=== PATIENT | female | born 1985 | race Caucasian/White ===

== ENCOUNTER 2016-11-08 06:54 | Emergency (ER) | payer SELFPAY ==
[~2016-11-08] VITALS: Ht 170.2 cm; Wt 74.9 kg
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
[2016-11-08 09:43] LABS: CREATININE 0.8 mg/dL (0.6-1.0); GFR 84.8; POTASSIUM 3.1 mmol/L (3.5-5.1)
[2016-11-08 09:45] LABS: BARBITURATES NEG (NEG); BENZODIAZEPINES NEG (NEG); CANNABINOIDS NEG (NEG); COCAINE POS (NEG); METHADONE NEG (NEG); OPIATES NEG (NEG); PHENCYCLIDINE NEG (NEG)
[2016-11-08 09:47] LABS: BASO % 0 % (0-3); EOS % 0 % (0-3); HEMATOCRIT 43.9 % (36.0-47.0); HEMOGLOBIN 15.1 g/dL (12.0-15.5); LYMPH # 1.9 x10^3/uL (1.0-4.8); LYMPH % 19 % (24-48); MEAN CORPUSCULAR HEMOGLOBIN 30 pg (25-35); MEAN CORPUSCULAR HGB CONC 34 g/dL (31-37); MEAN CORPUSCULAR VOLUME 86 fL (79-100); MONO % 8 % (0-9); NEUT % 73 % (31-73); PLATELET COUNT 302 x10^3/uL (140-400); RED BLOOD COUNT 5.09 x10^6/uL (3.50-5.40); RED CELL DISTRIBUTION WIDTH 13.7 % (11.5-14.5); WHITE BLOOD COUNT 10.3 x10^3/uL (4.0-11.0)
[2016-11-08 09:49] LABS: ALBUMIN 4.2 g/dL (3.4-5.0); ALBUMIN/GLOBULIN RATIO 1.1 (1.0-1.7); TOTAL PROTEIN 7.9 g/dL (6.4-8.2)
[2016-11-08] MEDS ORDERED: LORazepam 1 MG TABLET PO ONE (10:30)
[2016-11-08 11:02] VITALS: BP 126/76
[2016-11-08] MEDS ORDERED: LORA0.5T96 PO (11:03)
== END 2016-11-08 11:20 | disposition home or self-care (01) ==
LOC: ER 06:54
DX: F19.10 Other psychoactive substance abuse, uncomplicated (principal); F41.9 Anxiety disorder, unspecified
CPT/HCPCS: 36415; 80053; 80307; 85025; 99284; G0479

== ENCOUNTER 2016-12-06 19:14 | Emergency (ER) | payer SELFPAY ==
[~2016-12-06 19:14] MED LIST: LORA0.5T96 PO
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
[2016-12-06 19:56] LABS: BASO # 0.2 x10^3/uL (0.0-0.2); BASO % 1 % (0-3); EOS % 1 % (0-3); HEMATOCRIT 40.5 % (36.0-47.0); HEMOGLOBIN 13.6 g/dL (12.0-15.5); LYMPH # 3.4 x10^3/uL (1.0-4.8); LYMPH % 24 % (24-48); MEAN CORPUSCULAR HEMOGLOBIN 29 pg (25-35); MEAN CORPUSCULAR HGB CONC 34 g/dL (31-37); MEAN CORPUSCULAR VOLUME 87 fL (79-100); MONO % 8 % (0-9); NEUT % 66 % (31-73); PLATELET COUNT 259 x10^3/uL (140-400); RED BLOOD COUNT 4.66 x10^6/uL (3.50-5.40); RED CELL DISTRIBUTION WIDTH 13.8 % (11.5-14.5)
[2016-12-06 20:05] LABS: CALCIUM 8.7 mg/dL (8.5-10.1); CREATININE 0.7 mg/dL (0.6-1.0); GFR 98.9; POTASSIUM 3.1 mmol/L (3.5-5.1)
[2016-12-06 20:06] LABS: NEG OBC SER NEG; POS OBC SER POS
[2016-12-06 20:11] LABS: ALBUMIN 4.3 g/dL (3.4-5.0); DIRECT BILIRUBIN 0.1 mg/dL (0.0-0.2); TOTAL BILIRUBIN 0.4 mg/dL (0.2-1.0); TOTAL PROTEIN 7.3 g/dL (6.4-8.2)
[2016-12-06 20:13] LABS: INR 1.1 (0.8-1.1); PROTHROMBIN TIME PATIENT 13.6 SEC (11.7-14.0)
[2016-12-06 20:19] LABS: CKMB MASS 11.5 ng/mL (0.0-3.6)
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
[2016-12-06] MEDS ORDERED: POTASSIUM CHLORIDE 20 MEQ TABLET.ER. PO ONE ×2 (21:04→21:15)
[2016-12-06 21:15] VITALS: BP 120/70
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
== END 2016-12-06 21:54 | disposition home or self-care (01) ==
LOC: ER 19:14
DX: S80.12XA Contusion of left lower leg, initial encounter (principal); S70.11XA Contusion of right thigh, initial encounter; S70.12XA Contusion of left thigh, initial encounter; M54.2 Cervicalgia; R07.89 Other chest pain; E87.6 Hypokalemia; R79.89 Other specified abnormal findings of blood chemistry; V86.59XA Driver of other special all-terrain or other off-road motor vehicle injured in nontraffic accident, initial encounter; Y93.I9 Activity, other involving external motion; Y92.410 Unspecified street and highway as the place of occurrence of the external cause; Y99.8 Other external cause status
CPT/HCPCS: 36415; 70450; 71020; 72125; 72170; 73590; 80048; 80076; 82553; 83605; 83690; 84703; 85025; 85610; 99285-25

== ENCOUNTER 2018-07-27 21:25 | Emergency (ER) | payer SELFPAY ==
[~2018-07-27] VITALS: Ht 172.7 cm; Wt 74.8 kg
[2018-07-27 21:42] LABS: BILIRUBIN,URINE NEGATIVE (NEG); CLARITY,URINE CLOUDY; COLOR,URINE YELLOW; NITRITE,URINE NEGATIVE (NEG); PROTEIN,URINE 100 mg/dL (NEG-TRACE); UROBILINOGEN,URINE 0.2 mg/dL (0.2 mg/dL)
[2018-07-27 21:55] VITALS: BP 125/76
[2018-07-27 21:56] LABS: BACTERIA,URINE MODERATE /HPF (0-FEW); SQUAMOUS EPITHELIAL CELL,UR FEW /LPF; WBC,URINE >40 /HPF (0-4)
[2018-07-27] MEDS ORDERED: CEPH500C PO (22:36)
--- NOTE | 2018-07-27 22:38 | PHYS DOC ---
Past Medical History Past Medical History: No Pertinent History, Other Additional Past Medical Histor: ETOH and Drug abuse (LATISHA BENNETT APRN) Past Surgical History: Other Additional Past Surgical Histo: , "cervical surgeries" (LATISHA BENNETT APRN) Additional Information: 1 ppd Alcohol Use: Heavy Additional Information: 1 pint wiskey/day Drug Use: Cocaine, Methamphetamine, Phencyclidine (LATISHA BENNETT APRN) Adult General Chief Complaint Chief Complaint: PAIN ON URINATION [facility] HPI Patient is a 32 year old female who presents with [4 day complaints of urinary frequency, burning with urination. Patient reports she has never had a UTI like this before, usually she is able to treat it with cranberry pills and cranberry juice. Patient denies concerns or STI. Denies any current vaginal bleeding, vaginal hemorrhage, vaginal itching. Patient does report she has been feeling more anxious recently, has a history of alcohol abuse and drug abuse, states she is going to go to rehabilitation on Monday, has it scheduled to go through treatment there. Denies suicidal thoughts, denies suicidal ideation, denies thoughts of self-harm. Does report she drinks probably half pint of EtOH each day, does occasionally use methamphetamine, last used 3 days ago.] (LATISHA BENNETT APRN) Review of Systems Review of Systems Constitutional: Denies fever or chills [] Eyes: Denies change in visual acuity, redness, or eye pain [] HENT: Denies nasal congestion or sore throat [] Respiratory: Denies cough or shortness of breath [] Cardiovascular: No additional information not addressed in HPI [] GI: Denies abdominal pain, nausea, vomiting, bloody stools or diarrhea [] : Denies hematuria, does complain of increased urinary frequency, burning with urination.[] Musculoskeletal: Denies back pain or joint pain [] Integument: Denies rash or skin lesions [] Neurologic: Denies headache, focal weakness or sensory changes [] Endocrine: Denies polyuria or polydipsia [] All other systems were reviewed and found to be within normal limits, except as documented in this note. (LATISHA BENNETT APRN) Current Medications Current Medications Current Medications Medications (Trade) Dose Ordered Sig/Shaheen Start Time Stop Time Status Last Admin Dose Admin Cephalexin HCl (Keflex) 500 mg ONCE ONCE 07/27/18 23:00 5/31/19 23:01 DC 07/27/18 22:53 500 MG Phenazopyridine HCl (Pyridium) 200 mg 1X ONCE 07/27/18 23:00 07/27/18 23:01 DC 07/27/18 22:53 200 MG (SHAYY STROUD DO) Allergies Allergies Allergies Coded Allergies Type Severity Reaction Last Updated Verified No Known Drug Allergies 09/12/14 No (SHAYY STROUD DO) Physical Exam Physical Exam Constitutional: Well developed, well nourished, no acute distress, non-toxic appearance. Calm, conversational, becomes tearful when discussing her alcohol use and drug abuse. [] HENT: Normocephalic, atraumatic, bilateral external ears normal, oropharynx moist, no oral exudates, nose normal. [] Eyes: PERRLA, EOMI, conjunctiva normal, no discharge. [] Neck: Normal range of motion, no tenderness, supple, no stridor. [] Cardiovascular:Heart rate regular rhythm, no murmur [] Lungs & Thorax: Bilateral breath sounds clear to auscultation [] Abdomen: Bowel sounds normal, soft, no tenderness, no masses, no pulsatile masses. [] Skin: Warm, dry, no erythema, no rash. [] Back: No tenderness, no CVA tenderness. [] Extremities: No tenderness, no cyanosis, no clubbing, ROM intact, no edema. [] Neurologic: Alert and oriented X 3, normal motor function, normal sensory function, no focal deficits noted. [] Psychologic: Affect normal, judgement normal, mood normal. [] (LATISHA BENNETT APRN) Current Patient Data Vital Signs Vital Signs Date Time Temp Pulse Resp B/P (MAP) Pulse Ox O2 Delivery O2 Flow Rate FiO2 07/27/18 21:55 97.9 109 20 125/76 (92) 98 Room Air 97.9 (SHAYY STROUD DO) Lab Values Laboratory Tests Test 07/27/18 21:25 07/27/18 21:32 Urine Collection Type Void Urine Color Yellow Urine Clarity Cloudy Urine pH 7.0 Urine Specific [place] 1.020 Urine Protein 100 mg/dL (NEG-TRACE) Urine Glucose (UA) Negative mg/dL (NEG) Urine Ketones (Stick) Negative mg/dL (NEG) Urine Blood Moderate (NEG) Urine Nitrite Negative (NEG) Urine Bilirubin Negative (NEG) Urine Urobilinogen Dipstick 0.2 mg/dL (0.2 mg/dL) Urine Leukocyte Esterase Large (NEG) Urine RBC 11-20 /HPF (0-2) Urine WBC >40 /HPF (0-4) Urine Squamous Epithelial Cells Few /LPF Urine Bacteria Moderate /HPF (0-FEW) POC Urine HCG, Qualitative Hcg negative (Negative) (SHAYY STROUD DO) EKG EKG [] (LATISHA BENNETT APRN) Radiology/Procedures Radiology/Procedures [] (LATISHA BENNETT APRN) Course & Med Decision Making Course & Med Decision Making Pertinent Labs and Imaging studies reviewed. (See chart for details) [] (LATISHA BENNETT APRN) Dragon Disclaimer Dragon Disclaimer This electronic medical record was generated, in whole or in part, using a voice recognition dictation system. (LATISHA BENNETT APRN) Departure Departure Impression: Primary Impression: Urinary tract infection Additional Impression: Anxiety Disposition: HOME, SELF-CARE Condition: GOOD Referrals: NO PCP (PCP) Patient Instructions: Urinary Tract Infection, [id number] Additional Instructions: As we discussed, make sure you take the antibiotic until it is gone, the entire course. Keep your plan for your treatment starting on Monday as discussed. Scripts Cephalexin (CEPHALEXIN) 500 Mg Capsule 1 CAP PO BID, #20 CAP Prov: LATISHA BENNETT APRN 07/27/18 Attending Signature Attending Signature I have reviewed the PA/OFFICE CLERK ASSISTANT's note and plan of care. I was available for consultation as needed during the patient's visit in the emergency department. I agree with the clinical impression, plan, and disposition. (SHAYY STROUD DO) Problem Qualifiers Primary Impression: Urinary tract infection Urinary tract infection type: acute cystitis Hematuria presence: with hematuria Qualified Codes: N30.01 - Acute cystitis with hematuria LATISHA BENNETT APRN July 27, 2018 22:38 SHAYY STROUD DO Jul 28, 2018 04:05
[2018-07-27] MEDS ORDERED: CEPHALEXIN 250 MG CAPSULE. PO ONE (23:00)
[2018-07-27] MEDS ORDERED: PHENAZOPYRIDINE 200 MG TABLET. PO ONE (23:00)
== END 2018-07-27 22:58 | disposition home or self-care (01) ==
LOC: ER 21:25
DX: N30.01 Acute cystitis with hematuria (principal); F41.9 Anxiety disorder, unspecified; F17.200 Nicotine dependence, unspecified, uncomplicated; F10.20 Alcohol dependence, uncomplicated; Y90.9 Presence of alcohol in blood, level not specified
CPT/HCPCS: 81001; 81025; 87086; 87186; 99284

== ENCOUNTER 2018-12-04 23:53 | Emergency (ER) | payer SELFPAY ==
[~2018-12-04 23:53] MED LIST changes: +CEPH500C PO
== END 2018-12-05 00:35 | disposition left against medical advice (07) ==
LOC: ER 23:53
DX: F19.10 Other psychoactive substance abuse, uncomplicated (principal); Z53.21 Procedure and treatment not carried out due to patient leaving prior to being seen by health care provider

== ENCOUNTER 2018-12-05 01:48 | Emergency (ER) | payer SELFPAY ==
[~2018-12-05] VITALS: Ht 162.6 cm; Wt 63.5 kg
[2018-12-05 01:50] VITALS: BP 130/79
--- NOTE | 2018-12-05 02:21 | PHYS DOC ---
Past Medical History Past Medical History: Alcoholism, Other Additional Past Medical Histor: Substance Abuse Past Surgical History: Other Additional Past Surgical Histo: , "cervical surgeries" Alcohol Use: Heavy Drug Use: Cocaine, Methamphetamine, Phencyclidine Adult General Chief Complaint Chief Complaint: SORE THROAT HPI HPI 33-year-old female with known substance abuse presents with a sore throat. She denies any fever. She states anytime she tries to drink something or eat something it sore when she swallows area she denies any rash. She does admit to using methamphetamines recently.[] Review of Systems Review of Systems Constitutional: Denies fever or chills [] Eyes: Denies change in visual acuity, redness, or eye pain [] HENT: Reports sore throat[] Respiratory: Denies cough or shortness of breath [] Cardiovascular: No additional information not addressed in HPI [] GI: Denies abdominal pain, nausea, vomiting, bloody stools or diarrhea [] : Denies dysuria or hematuria [] Musculoskeletal: Denies back pain or joint pain [] Integument: Denies rash or skin lesions [] Neurologic: Denies headache, focal weakness or sensory changes [] Endocrine: Denies polyuria or polydipsia [] All other systems were reviewed and found to be within normal limits, except as documented in this note. Allergies Allergies Allergies Coded Allergies Type Severity Reaction Last Updated Verified No Known Drug Allergies 09/12/14 No Physical Exam Physical Exam Constitutional: Well developed, well nourished, no acute distress, non-toxic appearance. [] HENT: Posterior pharynx is slightly erythematous but no exudate[] Eyes: PERRLA, EOMI, conjunctiva normal, no discharge. [] Neck: Normal range of motion, no tenderness, supple, no stridor. [] Cardiovascular:Heart rate regular rhythm, no murmur [] Lungs & Thorax: Bilateral breath sounds clear to auscultation [] Abdomen: Bowel sounds normal, soft, no tenderness, no masses, no pulsatile mass es. [] Skin: Warm, dry, no erythema, no rash. [] Back: No tenderness, no CVA tenderness. [] Extremities: No tenderness, no cyanosis, no clubbing, ROM intact, no edema. [] Neurologic: Alert and oriented X 3, normal motor function, normal sensory function, no focal deficits noted. [] Psychologic: Affect normal, judgement normal, mood normal. [] Current Patient Data Vital Signs Vital Signs Date Time Temp Pulse Resp B/P (MAP) Pulse Ox O2 Delivery O2 Flow Rate FiO2 12/05/18 01:50 98.4 93 17 130/79 (96) 99 Room Air 98.4 EKG EKG [] Radiology/Procedures Radiology/Procedures [] Course & Med Decision Making Course & Med Decision Making Pertinent Labs and Imaging studies reviewed. (See chart for details) [Medical screening exam was performed there was no emergency keyes noted. Patient decided to leave prior to final disposition] Dragon Disclaimer Dragon Disclaimer This electronic medical record was generated, in whole or in part, using a voice recognition dictation system. Departure Departure Impression: Primary Impression: Sore throat Additional Impression: Anxiety about health Disposition: 01 HOME, SELF-CARE Condition: STABLE Referrals: NO PCP (PCP) Problem Qualifiers RYAN ORTIZ DO Dec 05, 2018 02:21
== END 2018-12-05 02:40 | disposition home or self-care (01) ==
LOC: ER 01:48
DX: J02.9 Acute pharyngitis, unspecified (principal); F41.9 Anxiety disorder, unspecified; F10.20 Alcohol dependence, uncomplicated; Y90.9 Presence of alcohol in blood, level not specified; F15.10 Other stimulant abuse, uncomplicated; F16.10 Hallucinogen abuse, uncomplicated; F14.10 Cocaine abuse, uncomplicated
CPT/HCPCS: 99281

== ENCOUNTER 2021-07-27 02:25 | Inpatient (IN) | payer OTHER ==
[~2021-07-27] VITALS: Ht 163.8 cm; Wt 90.1 kg
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
[2021-07-27 02:56] LABS: BACTERIA,URINE FEW /HPF (0-FEW); RBC,URINE TNTC /HPF (0-2); WBC,URINE 20-40 /HPF (0-4)
[2021-07-27 02:57] LABS: TRICHOMONAS,URINE PRESENT
[2021-07-27] MEDS ORDERED: LIDOCAINE 1% PF 30 ML VIAL. INJ PRN (03:00)
[2021-07-27] MEDS ORDERED: IBUPROFEN 400 MG TABLET. PO PRN (03:00)
[2021-07-27] MEDS ORDERED: 0.9 % SODIUM CHLORIDE 10 ML DISP.SYRIN. IV PRN ×2 (03:00→05:45)
[2021-07-27] MEDS ORDERED: IV RINGERS,LACTATED 1000ML 1,000 ML IV PRN (03:00)
[2021-07-27] MEDS ORDERED: OXYTOCIN 30 UNIT/500 ML PREMIX 500 ML IV PRN ×2 (03:00→05:45)
[2021-07-27] MEDS ORDERED: TERBUTALINE 1 MG/ML VIAL. SQ PRN (03:00)
[2021-07-27] MEDS ORDERED: fentaNYL PF VIAL 100 MCG/2 ML VIAL IVP PRN (03:00)
[2021-07-27] MEDS ORDERED: BUTORPHANOL 2 MG/ML VIAL. IVP PRN (03:00)
[2021-07-27 03:04] LABS: AMPHETAMINE/METHAMPHETAMINE POS (NEG); BARBITURATES NEG (NEG); BENZODIAZEPINES NEG (NEG); CANNABINOIDS NEG (NEG); COCAINE NEG (NEG); METHADONE NEG (NEG); OPIATES NEG (NEG); PHENCYCLIDINE NEG (NEG)
[2021-07-27 03:25] LABS: BASO # 0.1 x10^3/uL (0.0-0.2); BASO % 0 % (0-3); EOS # 0.1 x10^3/uL (0.0-0.7); EOS % 0 % (0-3); HEMATOCRIT 37.8 % (36.0-47.0); HEMOGLOBIN 12.5 g/dL (12.0-15.5); LYMPH # 2.6 x10^3/uL (1.0-4.8); LYMPH % 12 % (24-48); MEAN CORPUSCULAR HEMOGLOBIN 28 pg (25-35); MEAN CORPUSCULAR HGB CONC 33 g/dL (31-37); MEAN CORPUSCULAR VOLUME 84 fL (79-100); MONO # 1.3 x10^3/uL (0.0-1.1); MONO % 6 % (0-9); NEUT # 17.7 x10^3/uL (1.8-7.7); NEUT % 81 % (31-73); PLATELET COUNT 244 x10^3/uL (140-400); RED BLOOD COUNT 4.53 x10^6/uL (3.50-5.40); RED CELL DISTRIBUTION WIDTH 14.9 % (11.5-14.5); WHITE BLOOD COUNT 21.7 x10^3/uL (4.0-11.0)
[2021-07-27] MEDS: IV RINGERS,LACTATED 1000ML 1,000 ML IV PRN ×2 (03:35→04:13)
[2021-07-27] MEDS ORDERED: PENICILLIN G K 5,000,000 UNIT in IV DEXTROSE 5% 100ML 100 ML IV ONE (04:00)
[2021-07-27 04:12] LABS: % BANDS 1 % (0-9); % EOS 1 % (0-5); % LYMPHS 20 % (24-48); % MONOS 4 % (0-10); % SEGS 74 % (35-66); PLT ESTIMATE ADEQUATE (ADEQUATE)
[2021-07-27] MEDS ORDERED: MAGNESIUM HYDROXIDE 2,400 MG/30 ML ORAL.SUSP. PO PRN (05:45)
[2021-07-27] MEDS ORDERED: ZOLPIDEM 5 MG TABLET. PO PRN (05:45)
[2021-07-27] MEDS ORDERED: SIMETHICONE 80 MG TAB.CHEW PO PRN (05:45)
[2021-07-27] MEDS ORDERED: MAG HYDROX/ALUMINUM HYD/SIMETH 30 ML ORAL.SUSP PO PRN (05:45)
[2021-07-27] MEDS ORDERED: BENZOCAINE 20% TOPICAL AEROSOL SPRAY 57GM CAN. TP PRN (05:45)
[2021-07-27] MEDS ORDERED: TDaP (BOOSTRIX) per PROTOCOL. MC PRN (05:45)
[2021-07-27] MEDS ORDERED: MMR per PROTOCOL. MC PRN (05:45)
[2021-07-27] MEDS ORDERED: PHENYLEPH/MINERAL OIL/PETROLAT RECTAL OINTMENT TUBE. RC PRN (05:45)
[2021-07-27] MEDS ORDERED: diphenhydrAMINE HCL 25 MG CAPSULE PO PRN (05:45)
[2021-07-27] MEDS ORDERED: ACETAMINOPHEN 325 MG TABLET. PO PRN (05:45)
[2021-07-27] MEDS ORDERED: HYDROcodone/APAP 5/325MG 1 TAB TABLET PO PRN ×2 (05:45)
--- NOTE | 2021-07-27 06:01 | PDOC1 ---
OB - History Hx of Present Care: Limited Care Ultrasounds: No ultrasounds Obstetrical Complications: None Medical Complications: None Past Family/Social History * Past Medical, Surgical, Family and Obstetric Histories reviewed from chart. Blood Type: A+ Rubella: Unknown RPR/VDRL: Negative GBS Status: Unknown HBsAG: Unknown OB - Chief Complaint & HPI Date of Admission: Date of Admission: July 27, 2021 at 02:25 Chief Complaint/History : 2 Para: 1 Reason for admission: active labor Admission Nurse Assessment Rev: Yes Problems: (1) Polysubstance abuse OB - Admission Exam Physical Exam HEENT: Normal Heart: Regular Rate Lungs: Clear Abdomen: Gravid Reflexes: Normal Cervical Dilatation: 10cm Effacement: 100% Membranes: Ruptured Amniotic Fluid: Clear Heart Rate: Normal Decelerations: No decelerations Intensity: SHAYY Issa MD July 27, 2021 06:01
--- NOTE | 2021-07-27 06:34 | PDOC4 ---
VAGINAL DELIVERY DATE DATE: 07/27/21 TIME: 06:28 : 2 Para: 2 (now) VAGINAL DELIVERY: VTX PLACENTA: Spontaneous SEX: Male WEIGHT Weight [ ] Amniotic Fluid: Clear PAIN: Natural EPISIOTOMY: No EXTENSION: No EBL 200 ADDITIONAL NOTES This patient is a 35 now P2 female who came into [facility] labor and delivery without record. Patient was in active labor with ruptured membranes and clear fluid noted. Patient had cervical dilatation of 9+ centimeters. Patient did have care at [facility] but no records are available. 1 dose of antibiotics for GBS negative status was achieved. Precipitous delivery occurred with nurse in attendance prior to my arrival. Placenta immediately delivered intact. Vaginal vault was inspected no significant lacerations were noted and no significant bleeding was noted. Uterus was firm blood pressure was initially low postdelivery but IV fluids were administrated with good blood pressure response. Mother and baby to recovery in stable condition complications at this delivery include precipitous delivery hypotension positive drug abuse panel for methamphetamines trichomonas vaginalis. Routine care will ensue. Records from [facility] to be ordered. Case was discussed with Dr. Palacio who will assume care. Signs of Intrauterine Infectio: None, Other (Trich in urine) Shoulder Dystocia: No DIAGNOSIS Precipitous vaginal delivery Problems: (1) Polysubstance abuse SHAYY LIM MD July 27, 2021 06:34
[2021-07-27] MEDS: PENICILLIN G K 2,500,000 UNIT in IV DEXTROSE 5% 50 ML IV SCH ×3 (08:00→16:00)
[2021-07-27 08:45] VITALS: BP 120/69
[2021-07-27] MEDS ORDERED: NICOTINE 21MG PATCH. TD SCH (09:00)
[2021-07-27] MEDS ORDERED: MULTIVITAMIN with MINERAL TABLET. PO SCH (09:00)
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
[2021-07-27 13:45] VITALS: BP 138/79
[2021-07-27] MEDS ORDERED: IBUPROFEN 400 MG TABLET. PO SCH (14:00)
[2021-07-27 17:05] VITALS: BP 118/77
[2021-07-27 19:52] VITALS: BP 115/67
--- NOTE | 2021-07-27 20:21 | NUR ---
RN to bedside to educate pt. on POC to complete COVID swabs and talk with pt. about UA results. Pt. irritable and frustrated that RN "will not leave me alone. I just want to sleep." RN educated pt. that after she completed the COVID swabs she would be able to let the pt. rest. Pt. agreed to COVID swabs at this time. RN educated pt. on UA showing positive for Trich and the treatment plan. Pt. aggravated that RN will not leave her alone and let her sleep. Will attempt to reeducate pt. at a later time.
[2021-07-28] MEDS ORDERED: FERROUS SULFATE 325 MG TABLET. PO SCH (08:00)
--- NOTE | 2021-07-29 17:10 | PATHOLOGY ---
[facility] Accession Number: [id number] . 01 Material submitted: . placenta - PLACENTA AND CORD . 01 Clinical history: . LATE , LABOR + AMPHETMATINE, + ALCOHOL . 02 Diagnosis: 513 gram early term placenta of an estimated 37 weeks 1 day gestation with attached membranes and umbilical cord: - Placenta weight at approximate 70th percentile for estimated gestational age. - Eccentric insertion of umbilical cord. - Chorangiosis. - Few subamniotic pigmented macrophages. (JPM:soheila; 07/29/2021) S 07/29/2021 1012 Local . 02 Comment: There is no evidence of an acute chorioamnionitis or villitis. There are no infarcts. (JPM:soheila; 07/29/2021) . 02 Electronically signed: . Sancho Jones MD, Pathologist NPI- [id number] . 01 Gross description: . Fixative: Formalin Labeled: Per requisition: Placenta and cord Specimen received: Mcdaniel placenta with attached membranes, and umbilical cord Dimensions: 19.8 x 17.0 x 3.0 cm membranes appearance: Complete, georges-pink, focally hemorrhagic, glistening, displaying a marked separation of the amnion membrane insertion: Marginal Umbilical cord: 47.7 cm in length, 1.0-2.0 cm in diameter Umbilical cord insertion: Eccentric, 5.2 cm from the closest placental disc edge Number of umbilical vessels: 3 Umbilical cord appearance: Georges-white, congested, displaying 3 coils per 10 cm segment Trimmed placental weight: 513 g surface: Blue-purple, displaying a slightly congested vasculature in a normal arborizing pattern, a minimal amount of subchorionic fibrin deposition and a marked separation of the amnion Maternal surface: Complete, red-brown, displaying a moderate amount of surface calcifications, comprising less than 5% of the total parenchymal volume. Parenchyma: Congested, red, devoid of distinct masses or lesions . Rn Trauma sections are submitted as follows: A1 proximal and distal umbilical cord A2 membranes, rolled A3 customer account representative peripheral placenta A4 customer account representative central placenta ([facility]; 07/27/2021) [facility] 07/27/2021 2318 Local . 02 Pathologist provided ICD-10: O43.893, Z37.0, Z3A.37 . 02 CPT . 699430 Specimen Comment: Report sent to Performed at: 01 [facility] [address], [place] [id number] MD Flo Mckeon MD Phone: [phone] Performed at: 02 [facility] [address] [place], [place] [id number] MD Sancho Jones MD Phone: [phone]
== END 2021-07-28 | disposition home or self-care (01) | DRG 806 ==
LOC: OBSVTOIN 02:25 → 3 SO LND 02:25
PROVIDERS: ADMIT Obstetrics & Gynecology; ATTEND Obstetrics & Gynecology
PROC: 10E0XZZ Delivery of Products of Conception, External Approach (ICD-10-PCS; principal; 2021-07-27)
DX: O62.3 Precipitate labor (principal); Z37.0 Single live birth; O99.324 Drug use complicating childbirth; O98.32 Other infections with a predominantly sexual mode of transmission complicating childbirth; Z20.822 Contact with and (suspected) exposure to COVID-19; F15.10 Other stimulant abuse, uncomplicated; A59.01 Trichomonal vulvovaginitis; F32.A Depression, unspecified; O99.344 Other mental disorders complicating childbirth; Z3A.37 37 weeks gestation of pregnancy
CPT/HCPCS: 36415; 80307; 81001; 85007; 85025; 86592; 86703; 86762; 86850; 86900; 86901; 87086; 87340; 88307; 99406; J2540; J3010; J7060; J7120; G0378